=== PATIENT | male | born 1940 | race Two or more races ===

== ENCOUNTER 2020-11-04 13:37 | Inpatient (IN) | payer MEDICARE, OTHER ==
[~2020-11-04] VITALS: Ht 185.4 cm; Wt 96.5 kg
[2020-11-04] MEDS ORDERED: MORPHINE SULFATE INJECTION 2 MG/ML SYRG IV ONE ×2 (14:45→16:15)
[2020-11-04] MEDS ORDERED: TETANUS-DIPTH-ACEL PERTUSSIS 0.5ML SYR Tdap IM ONE (14:45)
[2020-11-04] MEDS ORDERED: ONDANSETRON HCL 4 MG/2 ML VIAL IV ONE (14:45)
[2020-11-04] MEDS ORDERED: MORPHINE SULFATE INJECTION 2 MG/ML SYRG ONE (14:47)
[2020-11-04] MEDS ORDERED: ONDANSETRON HCL 4 MG/2 ML VIAL ONE (14:47)
[2020-11-04 14:55] LABS: Hemoglobin 14.2 g/dL (13.5-17.5); Mean Corpuscular Hemoglobin 31.2 pg (28.0-32.0); Mean Corpuscular Hgb Conc. 34.5 g/dL (32.0-36.0); Mean Corpuscular Volume 90.3 fL (80.0-100.0); Red Blood Cells 4.54 10^6/uL (4.5-5.90); Red Cell Distribution Width 15.2 % (11.8-14.3); White Blood Cell 11.7 10^3/uL (4.4-10.8)
[2020-11-04 15:09] LABS: Basophils % (manual) 0 (0.0-2.0); Blast Cells 0; Myelocytes % 0; Promyelocytes % 0; Reactive Lymphocytes 0
[2020-11-04 15:14] LABS: Albumin 3.5 g/dL (3.4-5.0); Anion Gap 5 (5-15); Blood Urea Nitrogen 15 mg/dL (7-18); Calcium 8.2 mg/dL (8.5-10.1); Carbon Dioxide 25 mmol/L (21-32); Chloride 110 mmol/L (98-107); Glucose 102 mg/dL (74-106); Potassium 3.7 mmol/L (3.5-5.1); Sodium 140 mmol/L (136-145)
[2020-11-04 15:20] LABS: Alanine Aminotransferase 31 U/L (16-61); Alkaline Phosphatase 92 U/L (45-117); Aspartate Aminotransferase 22 U/L (15-37); BUN/Creatinine Ratio 17.9; Bilirubin, Total 0.6 mg/dL (0.2-1.0); GFR African American 113 mL/min; GFR Non-African American 93 mL/min; Total Protein 6.8 g/dL (6.4-8.2)
[2020-11-04] MEDS ORDERED: SODIUM CHLORIDE 0.9% 1,000 ML IVB ONE (16:00)
[2020-11-04] MEDS ORDERED: NEOMYCIN-BACITRACIN-POLYM UNITDOSE PKG TOP OINT TOP ONE (16:11)
[2020-11-04 16:24] LABS: Band Neutrophils % (manual) 8
[2020-11-04 16:25] LABS: Eosinophils % (manual) 0 (0-7); Lymphocytes % (manual) 4 (10.0-50.0); Metamyelocytes % 1; Monocytes % (manual) 2 (0-12)
[2020-11-04 17:00] LABS: INR 1.05 (0.9-1.15); Partial Thromboplastin Time 23.9 sec (23.0-31.2)
[2020-11-04] MEDS ORDERED: HYDROcodone-ACET 10/325MG TAB PO PRN (17:30)
[2020-11-04] MEDS ORDERED: CHOL500033 PO (17:48)
[2020-11-04] MEDS ORDERED: BENA20TA14 PO (17:48)
[2020-11-04] MEDS ORDERED: FLUT250M2 INH (17:48)
[2020-11-04] MEDS ORDERED: ATE50T PO (17:48)
[2020-11-04] MEDS: SODIUM CHLORIDE 0.9% 1,000 ML IV SCH (17:58)
[2020-11-04] MEDS: HYDROmorphone HCL 2 MG/ML VL IV PRN (18:11)
[2020-11-04] MEDS ORDERED: MORPHINE SULFATE INJECTION 2 MG/ML SYRG IV PRN (18:15)
[2020-11-04] MEDS ORDERED: NITROGLYCERIN 0.4 MG SL TAB SL PRN (18:15)
[2020-11-04 19:55] VITALS: BP 129/69
[2020-11-04] MEDS ORDERED: HEPARIN SODIUM (PORCINE) 5000 UNITS/ML 1ML VIAL SC SCH (22:00)
[2020-11-04 23:48] VITALS: BP 127/86
[2020-11-04 23:54] VITALS: BP 129/69
[2020-11-05] VITALS (13 sets, daily range): BP systolic 109–152; BP diastolic 38–73
[2020-11-05] MEDS ORDERED: MAGN400T40 PO (01:42)
[2020-11-05] MEDS ORDERED: FLUT1AER6 IN (01:42)
[2020-11-05] MEDS ORDERED: TIOTCAP IN (01:42)
[2020-11-05] MEDS ORDERED: PNEUMOCOCCAL VACC POLYS 25 MCG/0.5 ML VIAL IM ONE (01:45)
[2020-11-05] MEDS: ALBUTEROL SULF 2.5 MG/0.5ML(0.5%) NEB SOLN NEB PRN ×2 (03:15→11:08)
[2020-11-05] MEDS: SODIUM CHLORIDE 0.9% 1,000 ML IV SCH (03:22)
[2020-11-05] MEDS: HYDROmorphone HCL 2 MG/ML VL IV PRN ×2 (03:32→09:02)
[2020-11-05 04:31] LABS: Urine Bacteria FEW /hpf (None Seen); Urine Blood 2+ /uL (Negative); Urine Hyaline Cast FEW /lpf (0 - 2); Urine Mucus FEW (None Seen); Urine Specific Gravity 1.022 (1.001-1.035); Urine WBC 36 /hpf (0 - 3)
[2020-11-05] MEDS: BENAZEPRIL HCL 10 MG TAB PO SCH (09:00)
[2020-11-05] MEDS: ATENOLOL 50 MG TAB PO SCH (09:01)
[2020-11-05] MEDS: FLUTICASONE SALMETEROL IN SCH ×2 (10:00→22:13)
[2020-11-05] MEDS ORDERED: ceFAZolin 1GM/50ML 100 ML IV ONE (12:47)
[2020-11-05] MEDS ORDERED: TETRACAINE 1% INJ 2 ML VIAL IJ ONE (13:17)
[2020-11-05] MEDS ORDERED: PHENYLEPHRINE HCL 10 MG/ML VL IV ONE (13:18)
[2020-11-05] MEDS ORDERED: DexAMETHasone SOD PHOS 10MG/1ML VIAL INJ ONE (13:19)
[2020-11-05] MEDS ORDERED: PROPOFOL 10 MG/ML 20 ML IV ONE (13:19)
[2020-11-05] MEDS ORDERED: MORPHINE SULF PF 2 MG/2 ML SYRG ONE (13:19)
[2020-11-05] MEDS ORDERED: fentaNYL CITRATE 100 MCG/2 ML VL ONE (13:19)
[2020-11-05] MEDS ORDERED: MIDAZOLAM HCL 2MG/2ML 2ml VIAL (1mg/ml) ONE (13:23)
[2020-11-05] MEDS ORDERED: HYDROcodone-ACET 10/325MG TAB PO PRN (14:45)
[2020-11-05] MEDS ORDERED: NALBUPHINE HCL 10 MG/1ml INJECTION SUBCUT ONE (15:15)
[2020-11-05] MEDS ORDERED: HYDROmorphone HCL 2 MG/ML VL IV PRN (15:15)
[2020-11-05] MEDS ORDERED: DexAMETHasone SOD PHOS 10MG/1ML VIAL INJ IV PRN (15:15)
[2020-11-05] MEDS ORDERED: ONDANSETRON HCL 4 MG/2 ML VIAL IV PRN (15:15)
[2020-11-05] MEDS ORDERED: diphenhdrAMINE HCL 50 MG/1 ML VL IV PRN (15:15)
[2020-11-05] MEDS ORDERED: ePHEDrine SULFATE 50 MG/ML AMP IV PRN (15:15)
[2020-11-05] MEDS ORDERED: NALOXONE HCL 0.4 MG/ML VIAL IV PRN (15:15)
[2020-11-05] MEDS ORDERED: LABETALOL HCL 5 MG/ML 4ML SYRINGE IV PRN (15:15)
[2020-11-05] MEDS: ceFAZolin 1GM/50ML 50 ML IV SCH ×2 (17:09→20:41)
[2020-11-05] MEDS: LACTATED RINGER'S 1,000 ML IV SCH (17:09)
[2020-11-05] MEDS: SODIUM CHLOR 0.9% PF (SALINE LOCK) 10ML VIAL/SYR IV SCH (22:12)
[2020-11-05] MEDS: CALCIUM CARB 500 MG CHEW TAB PO PRN (22:14)
[2020-11-06] VITALS (19 sets, daily range): BP systolic 119–170; BP diastolic 45–88
[2020-11-06] MEDS: LACTATED RINGER'S 1,000 ML IV SCH ×2 (01:06→12:00)
[2020-11-06] MEDS: ceFAZolin 1GM/50ML 50 ML IV SCH (02:21)
[2020-11-06] MEDS: SODIUM CHLOR 0.9% PF (SALINE LOCK) 10ML VIAL/SYR IV SCH ×2 (05:49→14:00)
[2020-11-06 06:01] LABS: Basophils # (auto) 0 10 ^3/uL (0-0.2); Basophils % (auto) 0.2 % (0.0-2.0); Eosinophils # (auto) 0 10 ^3/uL (0-0.8); Eosinophils % (auto) 0.1 % (0.0-7.0); Hematocrit 28.7 % (41.0-53.0); Hemoglobin 10.1 g/dL (13.5-17.5); Lymphocytes # (auto) 0.3 10 ^3/uL (0.4-5.4); Lymphocytes % (auto) 3.6 % (10.0-50.0); Mean Corpuscular Hemoglobin 31.7 pg (28.0-32.0); Mean Corpuscular Hgb Conc. 35.3 g/dL (32.0-36.0); Mean Corpuscular Volume 89.8 fL (80.0-100.0); Monocytes # (auto) 0.4 10 ^3/uL (0-1.3); Monocytes % (auto) 5.7 % (0.0-12.0); Neutrophils % (auto) 90.4 % (37.0-80.0); Red Blood Cells 3.19 10^6/uL (4.5-5.90); White Blood Cell 7.8 10^3/uL (4.4-10.8)
[2020-11-06 06:24] LABS: Potassium 4.1 mmol/L (3.5-5.1)
[2020-11-06 06:29] LABS: BUN/Creatinine Ratio 27.9; Calcium 7.5 mg/dL (8.5-10.1)
[2020-11-06] MEDS: BENAZEPRIL HCL 10 MG TAB PO SCH (09:09)
[2020-11-06] MEDS: ATENOLOL 50 MG TAB PO SCH (09:09)
[2020-11-06] MEDS: HYDROmorphone HCL 2 MG/ML VL IV PRN ×2 (09:10→16:26)
[2020-11-06] MEDS: FLUTICASONE SALMETEROL IN SCH (09:55)
[2020-11-06] MEDS ORDERED: ENOXAPARIN SOD 40 MG/0.4 ML SYRINGE SC SCH (10:00)
[2020-11-06] MEDS ORDERED: PANTOPRAZOLE 40 MG TAB PO SCH (10:00)
[2020-11-06] MEDS: CALCIUM CARB 500 MG CHEW TAB PO PRN (12:29)
[2021-03-03] MEDS ORDERED: TAMS0.4C36 PO (14:51)
[2021-03-03] MEDS ORDERED: ATE50T PO (14:51)
[2021-03-03] MEDS ORDERED: OME20GT GT (14:51)
[2021-03-03] MEDS ORDERED: ATOR10TA PO (14:51)
[2021-03-03] MEDS ORDERED: OMEP-434 PO (14:51)
[2021-03-03] MEDS ORDERED: ALEN70TA74 PO (14:51)
== END 2020-11-06 21:00 | DRG 481 ==
LOC: EDBD 13:37 → ER 13:37 → OVERFLOW 18:09 → CENTRAL 19:43
PROVIDERS: ADMIT Internal Medicine; ATTEND Internal Medicine
PROC: BQ14ZZZ Fluoroscopy of Left Femur (ICD-10-PCS; 2020-11-05)
PROC: 0QS706Z Reposition Left Upper Femur with Intramedullary Internal Fixation Device, Open Approach (ICD-10-PCS; principal; 2020-11-05 13:28)
DX: S72.142A Displaced intertrochanteric fracture of left femur, initial encounter for closed fracture (principal); D62 Acute posthemorrhagic anemia; S41.112A Laceration without foreign body of left upper arm, initial encounter; Z20.822 Contact with and (suspected) exposure to COVID-19; I10 Essential (primary) hypertension; J44.9 Chronic obstructive pulmonary disease, unspecified; E78.5 Hyperlipidemia, unspecified; E66.9 Obesity, unspecified; W18.39XA Other fall on same level, initial encounter; Z85.51 Personal history of malignant neoplasm of bladder; S42.202G Unspecified fracture of upper end of left humerus, subsequent encounter for fracture with delayed healing; Z23 Encounter for immunization; Z92.3 Personal history of irradiation; Z87.891 Personal history of nicotine dependence; Y93.89 Activity, other specified; Y92.59 Other trade areas as the place of occurrence of the external cause; Y99.8 Other external cause status; Z82.49 Family history of ischemic heart disease and other diseases of the circulatory system; Z82.0 Family history of epilepsy and other diseases of the nervous system; Z79.899 Other long term (current) drug therapy; Z68.26 Body mass index [BMI] 26.0-26.9, adult
CPT/HCPCS: 36415; 71045; 72170; 72192; 73030; 73060; 73080; 73502; 76000; 80048; 80053; 81001; 83735; 84484; 85007; 85025; 85027; 85610; 85730; 86850; 86900; 86901; 87081; 87426; 90471; 90715; 93005; 93306; 94640; 96361; 96374; 96375; 99291; A4565; C1713; G0378; J0690; J1100; J2250; J2405; J2704

== ENCOUNTER 2021-03-08 09:02 | Day surgery (SDC) | payer OTHER ==
[~2021-03-08] VITALS: Ht 172.7 cm; Wt 90.7 kg
[~2021-03-08 09:02] MED LIST: ALEN70TA74 PO; ATE50T PO; ATOR10TA PO; BENA20TA14 PO; CHOL500033 PO; FLUT1AER6 IN; FLUT250M2 INH; MAGN400T40 PO; OMEP-434 PO; TAMS0.4C36 PO; TIOTCAP IN
[2021-03-08] MEDS ORDERED: ceFAZolin 1GM/50ML 100 ML IV ONE (09:18)
[2021-03-08] MEDS ORDERED: MIDAZOLAM HCL 2MG/2ML 2ml VIAL (1mg/ml) ONE (10:50)
[2021-03-08] MEDS ORDERED: fentaNYL CITRATE 100 MCG/2 ML VL ONE (10:50)
[2021-03-08] MEDS ORDERED: LIDOCAINE 2% (LOCAL ANESTH.) PF 5ml SDV ONE (10:56)
[2021-03-08] MEDS ORDERED: PROPOFOL 10 MG/ML 20 ML IV ONE ×2 (10:56→12:19)
[2021-03-08] MEDS ORDERED: ePHEDrine SULFATE 50 MG/ML AMP ONE (12:19)
[2021-03-08] MEDS ORDERED: HYDROmorphone HCL 2 MG/ML VL IV PRN (12:30)
[2021-03-08] MEDS ORDERED: ONDANSETRON HCL 4 MG/2 ML VIAL IV PRN (12:30)
[2021-03-08 15:30] VITALS: BP 148/58
== END 2021-03-08 20:15 | disposition home or self-care (01) ==
LOC: SUR 09:02
PROVIDERS: ATTEND Orthopaedic Surgery
DX: M25.552 Pain in left hip (principal); T84.091A Other mechanical complication of internal left hip prosthesis, initial encounter; S72.141D Displaced intertrochanteric fracture of right femur, subsequent encounter for closed fracture with routine healing; I10 Essential (primary) hypertension; J44.9 Chronic obstructive pulmonary disease, unspecified; E78.5 Hyperlipidemia, unspecified; Z20.822 Contact with and (suspected) exposure to COVID-19; Y82.8 Other medical devices associated with adverse incidents; Y83.1 Surgical operation with implant of artificial internal device as the cause of abnormal reaction of the patient, or of later complication, without mention of misadventure at the time of the procedure
CPT/HCPCS: 20680; 86850; 86900; 86901; C1713; J0690; J2001; J2250; J2704; J3010; U0003

== ENCOUNTER 2022-06-29 02:25 | Inpatient (IN) | payer OTHER ==
[~2022-06-29] VITALS: Ht 182.9 cm; Wt 91.8 kg
[2022-06-29] MEDS ORDERED: ACETAMINOPHEN 325 MG TAB PO ONE (03:00)
[2022-06-29 03:56] LABS: Basophils # (auto) 0 10 ^3/uL (0-0.2); Basophils % (auto) 0.2 % (0.0-2.0); Eosinophils # (auto) 0 10 ^3/uL (0-0.8); Hematocrit 38.9 % (41.0-53.0); Hemoglobin 13.3 g/dL (13.5-17.5); Lymphocytes # (auto) 0.3 10 ^3/uL (0.4-5.4); Lymphocytes % (auto) 2.5 % (10.0-50.0); Mean Corpuscular Hemoglobin 29.6 pg (28.0-32.0); Mean Corpuscular Hgb Conc. 34.1 g/dL (32.0-36.0); Mean Corpuscular Volume 86.7 fL (80.0-100.0); Monocytes # (auto) 0.3 10 ^3/uL (0-1.3); Monocytes % (auto) 3.2 % (0.0-12.0); Neutrophils # (auto) 9.7 10 ^3/uL (1.6-8.6); Neutrophils % (auto) 94.1 % (37.0-80.0); Red Blood Cells 4.49 10^6/uL (4.5-5.90); Red Cell Distribution Width 16.3 % (11.8-14.3); White Blood Cell 10.3 10^3/uL (4.4-10.8)
[2022-06-29 04:11] LABS: INR 1.24 (0.9-1.15); Partial Thromboplastin Time 29.9 sec (24.6-33.4)
[2022-06-29 04:12] LABS: Albumin 2.9 g/dL (3.4-5.0); BUN/Creatinine Ratio 18.3; Calcium 7.7 mg/dL (8.5-10.1); Potassium 3.9 mmol/L (3.5-5.1)
[2022-06-29 04:14] LABS: Lactic Acid w/Reflex 2.7 mmol/L (0.4-2.0)
[2022-06-29 04:15] LABS: Bilirubin, Total 0.7 mg/dL (0.2-1.0)
[2022-06-29] MEDS ORDERED: ALBUTEROL MEDNEB 2.5 mg/3ml NEB ONE (04:37)
[2022-06-29] MEDS ORDERED: AZITHROMYCIN 500MG/ 250ML 250 ML IV ONE (04:45)
[2022-06-29] MEDS ORDERED: ALBUTEROL SULF 2.5 MG/0.5ML(0.5%) NEB SOLN NEB ONE (04:45)
[2022-06-29] MEDS ORDERED: cefTRIAXone 1GM/50ML D5W 50 ML IV ONE (04:45)
[2022-06-29] MEDS ORDERED: DexAMETHasone SOD PHOS 10MG/1ML VIAL INJ IV ONE (04:45)
[2022-06-29] MEDS ORDERED: HEPARIN DRIP/D5W 100UNITS/ML 250 ML IV SCH ×3 (04:45→22:30)
[2022-06-29] MEDS ORDERED: HEPARIN SODIUM (PORCINE) 5000 UNITS/ML 1ML VIAL IV ONE (04:45)
[2022-06-29 05:47] LABS: Basophils # (auto) 0 10 ^3/uL (0-0.2); Basophils % (auto) 0.3 % (0.0-2.0); Eosinophils # (auto) 0 10 ^3/uL (0-0.8); Hematocrit 36.4 % (41.0-53.0); Hemoglobin 12.5 g/dL (13.5-17.5); Lymphocytes # (auto) 0.4 10 ^3/uL (0.4-5.4); Lymphocytes % (auto) 2.6 % (10.0-50.0); Mean Corpuscular Hemoglobin 29.6 pg (28.0-32.0); Mean Corpuscular Hgb Conc. 34.3 g/dL (32.0-36.0); Mean Corpuscular Volume 86.4 fL (80.0-100.0); Monocytes # (auto) 0.6 10 ^3/uL (0-1.3); Monocytes % (auto) 4.5 % (0.0-12.0); Neutrophils # (auto) 13.3 10 ^3/uL (1.6-8.6); Neutrophils % (auto) 92.6 % (37.0-80.0); Red Blood Cells 4.21 10^6/uL (4.5-5.90); Red Cell Distribution Width 16.6 % (11.8-14.3); White Blood Cell 14.4 10^3/uL (4.4-10.8)
[2022-06-29] MEDS: NOREPINEPHRINE 8 MG/250ML KIT 250 ML IV SCH (06:33)
[2022-06-29] MEDS ORDERED: AZITHROMYCIN 500MG/ 250ML 250 ML IV SCH (12:15)
[2022-06-29] MEDS ORDERED: MORPHINE SULFATE INJ 2 MG/ml SYRG IV PRN (12:15)
[2022-06-29] MEDS ORDERED: cefTRIAXone 1GM/50ML D5W 50 ML IV SCH (12:15)
[2022-06-29] MEDS ORDERED: NITROGLYCERIN 0.4 MG SL TAB SL PRN (12:15)
[2022-06-29] MEDS ORDERED: PIPERACILLIN-TAZOB 2.25GM 50 ML IV ONE (14:00)
[2022-06-29] MEDS: PIPERACILLIN-TAZOB 2.25GM 50 ML IV SCH ×2 (14:51→21:20)
[2022-06-29 14:54] LABS: INR 1.22 (0.9-1.15); Partial Thromboplastin Time 41.9 sec (24.6-33.4)
[2022-06-29 15:58] LABS: Urine Bacteria MANY /hpf (None Seen); Urine Blood Negative /uL (Negative); Urine Hyaline Cast FEW /lpf (0 - 2); Urine Mucus FEW (None Seen); Urine WBC 80 /hpf (0 - 3); Urine WBC Clumps PRESENT /hpf (None Seen)
[2022-06-29] MEDS: IPRATROPIUM BROM 0.5 MG/2.5ML INH SOL NEB SCH ×2 (16:05→22:28)
[2022-06-29] MEDS: ALBUTEROL SULF 2.5 MG/0.5ML(0.5%) NEB SOLN NEB SCH ×2 (16:05→22:28)
[2022-06-29 20:23] LABS: INR 1.24 (0.9-1.15); Partial Thromboplastin Time 45.9 sec (24.6-33.4)
[2022-06-29] MEDS ORDERED: IPRATROPIUM BROM 0.5 MG/2.5ML INH SOL ONE (21:58)
[2022-06-30 01:36] VITALS: BP 114/55
[2022-06-30] MEDS: PIPERACILLIN-TAZOB 2.25GM 50 ML IV SCH ×3 (03:20→14:00)
[2022-06-30 05:35] LABS: INR 1.11 (0.9-1.15); Partial Thromboplastin Time 35.6 sec (24.6-33.4)
[2022-06-30] MEDS: ALBUTEROL SULF 2.5 MG/0.5ML(0.5%) NEB SOLN NEB SCH (06:00)
[2022-06-30] MEDS: NOREPINEPHRINE 8 MG/250ML KIT 250 ML IV SCH (06:30)
[2022-06-30] MEDS ORDERED: HEPARIN DRIP/D5W 100UNITS/ML 250 ML IV SCH (06:30)
[2022-06-30] MEDS ORDERED: ALBUTEROL MEDNEB 2.5 mg/3ml NEB ONE (07:15)
[2022-06-30] MEDS: IPRATROPIUM BROM 0.5 MG/2.5ML INH SOL NEB SCH ×3 (07:28→22:10)
[2022-06-30 12:00] LABS: Basophils # (auto) 0 10 ^3/uL (0-0.2); Basophils % (auto) 0.2 % (0.0-2.0); Eosinophils # (auto) 0 10 ^3/uL (0-0.8); Hematocrit 39.6 % (41.0-53.0); Hemoglobin 13.7 g/dL (13.5-17.5); Lymphocytes # (auto) 0.2 10 ^3/uL (0.4-5.4); Lymphocytes % (auto) 1.7 % (10.0-50.0); Mean Corpuscular Hemoglobin 29.2 pg (28.0-32.0); Mean Corpuscular Hgb Conc. 34.5 g/dL (32.0-36.0); Mean Corpuscular Volume 84.4 fL (80.0-100.0); Monocytes # (auto) 0.5 10 ^3/uL (0-1.3); Monocytes % (auto) 3.7 % (0.0-12.0); Neutrophils # (auto) 13.1 10 ^3/uL (1.6-8.6); Neutrophils % (auto) 94.4 % (37.0-80.0); Nucleated Red Blood Cells % 0.1 %; Red Blood Cells 4.69 10^6/uL (4.5-5.90); Red Cell Distribution Width 16.2 % (11.8-14.3); White Blood Cell 13.9 10^3/uL (4.4-10.8)
[2022-06-30 12:32] LABS: INR 1.07 (0.9-1.15); Partial Thromboplastin Time 27.5 sec (24.6-33.4)
[2022-06-30 14:19] LABS: Albumin 2.8 g/dL (3.4-5.0); Calcium 8.4 mg/dL (8.5-10.1); Potassium 4.9 mmol/L (3.5-5.1)
[2022-06-30 14:22] LABS: BUN/Creatinine Ratio 33.3; Bilirubin, Total 0.4 mg/dL (0.2-1.0); Total Protein 7.1 g/dL (6.4-8.2)
[2022-06-30] MEDS ORDERED: FUROSEMIDE 40 MG/4 ML VIAL IV ONE (15:15)
[2022-06-30 17:00] VITALS: BP 158/31
[2022-06-30] MEDS: PIPERACILLIN-TAZOB 3.375GM 100 ML IV SCH ×2 (17:29→23:50)
[2022-06-30] MEDS: LORazepam 0.5 MG TAB PO PRN (17:53)
[2022-06-30] MEDS: ALBUTEROL MEDNEB 2.5 mg/3ml NEB NEB SCH ×2 (18:22→22:10)
[2022-06-30] MEDS: AMIODARONE 450mg/250ml AE 250 ML IV SCH (20:22)
[2022-07-01] MEDS: PIPERACILLIN-TAZOB 3.375GM 100 ML IV SCH ×4 (05:45→23:45)
[2022-07-01] MEDS: IPRATROPIUM BROM 0.5 MG/2.5ML INH SOL NEB SCH ×5 (06:23→22:10)
[2022-07-01] MEDS: ALBUTEROL MEDNEB 2.5 mg/3ml NEB NEB SCH ×5 (06:23→22:10)
[2022-07-01 06:24] LABS: Basophils # (auto) 0.1 10 ^3/uL (0-0.2); Basophils % (auto) 0.3 % (0.0-2.0); Eosinophils # (auto) 0 10 ^3/uL (0-0.8); Eosinophils % (auto) 0.2 % (0.0-7.0); Hemoglobin 13.2 g/dL (13.5-17.5); Lymphocytes # (auto) 0.3 10 ^3/uL (0.4-5.4); Lymphocytes % (auto) 1.5 % (10.0-50.0); Mean Corpuscular Hemoglobin 29.2 pg (28.0-32.0); Mean Corpuscular Hgb Conc. 33.8 g/dL (32.0-36.0); Mean Corpuscular Volume 86.4 fL (80.0-100.0); Monocytes % (auto) 5.1 % (0.0-12.0); Neutrophils # (auto) 18.4 10 ^3/uL (1.6-8.6); Neutrophils % (auto) 92.9 % (37.0-80.0); Red Blood Cells 4.52 10^6/uL (4.5-5.90); Red Cell Distribution Width 16.7 % (11.8-14.3); White Blood Cell 19.9 10^3/uL (4.4-10.8)
[2022-07-01 06:49] LABS: Potassium 5.1 mmol/L (3.5-5.1)
[2022-07-01 07:11] LABS: Albumin 2.6 g/dL (3.4-5.0); BUN/Creatinine Ratio 32.3; Bilirubin, Total 0.6 mg/dL (0.2-1.0); Total Protein 6.4 g/dL (6.4-8.2)
[2022-07-01 08:00] VITALS: BP 122/77
[2022-07-01] MEDS ORDERED: IOHEXOL 350 MG/ML 100ML IJ ONE (08:12)
[2022-07-01 09:00] VITALS: BP 122/77
[2022-07-01] MEDS: FUROSEMIDE 40 MG/4 ML VIAL IV SCH (10:26)
[2022-07-01] MEDS: AMIODARONE 450mg/250ml AE 250 ML IV SCH (11:10)
[2022-07-01 13:00] VITALS: BP 116/62
[2022-07-01] MEDS ORDERED: BENA10TA15 PO (14:47)
[2022-07-01] MEDS ORDERED: OME20GT GT (14:50)
[2022-07-01] MEDS ORDERED: FLUT1AER6 IN (14:51)
[2022-07-01 16:54] VITALS: BP 119/68
[2022-07-01 20:00] VITALS: BP 122/62
[2022-07-01] MEDS: SENNA 8.6 MG TAB PO SCH (22:18)
[2022-07-01] MEDS: LORazepam 0.5 MG TAB PO PRN (23:45)
[2022-07-02] MEDS: AMIODARONE 450mg/250ml AE 250 ML IV SCH ×2 (02:05→18:30)
[2022-07-02] MEDS: PIPERACILLIN-TAZOB 3.375GM 100 ML IV SCH (06:11)
[2022-07-02 06:15] LABS: Basophils # (auto) 0.1 10 ^3/uL (0-0.2); Basophils % (auto) 0.3 % (0.0-2.0); Eosinophils # (auto) 0.1 10 ^3/uL (0-0.8); Eosinophils % (auto) 0.3 % (0.0-7.0); Hematocrit 40.4 % (41.0-53.0); Hemoglobin 14.1 g/dL (13.5-17.5); Lymphocytes # (auto) 0.4 10 ^3/uL (0.4-5.4); Mean Corpuscular Hemoglobin 29.6 pg (28.0-32.0); Mean Corpuscular Hgb Conc. 34.8 g/dL (32.0-36.0); Monocytes # (auto) 0.8 10 ^3/uL (0-1.3); Monocytes % (auto) 4.3 % (0.0-12.0); Neutrophils # (auto) 17.6 10 ^3/uL (1.6-8.6); Neutrophils % (auto) 93.1 % (37.0-80.0); Nucleated Red Blood Cells % 0.4 %; Red Blood Cells 4.76 10^6/uL (4.5-5.90); White Blood Cell 18.9 10^3/uL (4.4-10.8)
[2022-07-02 06:36] LABS: Potassium 4.3 mmol/L (3.5-5.1)
[2022-07-02 06:45] LABS: Albumin 2.6 g/dL (3.4-5.0); BUN/Creatinine Ratio 29.2; Calcium 8.8 mg/dL (8.5-10.1)
[2022-07-02 06:47] LABS: Bilirubin, Total 0.7 mg/dL (0.2-1.0); Total Protein 5.9 g/dL (6.4-8.2)
[2022-07-02] MEDS: IPRATROPIUM BROM 0.5 MG/2.5ML INH SOL NEB SCH ×3 (06:52→14:04)
[2022-07-02] MEDS: ALBUTEROL MEDNEB 2.5 mg/3ml NEB NEB SCH ×3 (06:52→14:04)
[2022-07-02 08:00] VITALS: BP 122/77
[2022-07-02 09:00] VITALS: BP 143/83
[2022-07-02] MEDS: FUROSEMIDE 40 MG/4 ML VIAL IV SCH (09:54)
[2022-07-02 13:00] VITALS: BP 140/72
[2022-07-02] MEDS ORDERED: PIPERACILLIN-TAZOB 3.375GM 100 ML IV SCH (14:00)
[2022-07-02 17:00] VITALS: BP 130/97
[2022-07-02] MEDS ORDERED: cefTRIAXone 1GM/50ML D5W 50 ML IV STA (17:48)
[2022-07-02] MEDS ORDERED: ALBUTEROL MEDNEB 2.5 mg/3ml NEB NEB PRN (18:00)
[2022-07-02] MEDS ORDERED: IPRATROPIUM BROM 0.5 MG/2.5ML INH SOL NEB PRN (18:00)
[2022-07-02] MEDS ORDERED: AZITHROMYCIN 500MG/ 250ML 250 ML IV STA (18:10)
[2022-07-02] MEDS: ADVAIR IN SCH (18:45)
[2022-07-02] MEDS: SPIRIVA HANDIHALER IN SCH (18:46)
[2022-07-02 20:00] VITALS: BP 124/76
[2022-07-02] MEDS: SENNA 8.6 MG TAB PO SCH (21:12)
[2022-07-02 22:00] VITALS: BP 124/76
[2022-07-03 02:34] VITALS: BP 124/76
[2022-07-03 05:00] VITALS: BP 126/86
[2022-07-03 06:47] LABS: Basophils # (auto) 0 10 ^3/uL (0-0.2); Basophils % (auto) 0.1 % (0.0-2.0); Eosinophils # (auto) 0.1 10 ^3/uL (0-0.8); Eosinophils % (auto) 0.4 % (0.0-7.0); Hematocrit 42.7 % (41.0-53.0); Hemoglobin 14.6 g/dL (13.5-17.5); Lymphocytes # (auto) 0.5 10 ^3/uL (0.4-5.4); Lymphocytes % (auto) 3.1 % (10.0-50.0); Mean Corpuscular Hemoglobin 29.4 pg (28.0-32.0); Mean Corpuscular Hgb Conc. 34.3 g/dL (32.0-36.0); Mean Corpuscular Volume 85.8 fL (80.0-100.0); Monocytes # (auto) 0.9 10 ^3/uL (0-1.3); Monocytes % (auto) 5.3 % (0.0-12.0); Neutrophils # (auto) 15.3 10 ^3/uL (1.6-8.6); Neutrophils % (auto) 91.1 % (37.0-80.0); Nucleated Red Blood Cells % 0.2 %; Red Blood Cells 4.97 10^6/uL (4.5-5.90); Red Cell Distribution Width 16.3 % (11.8-14.3); White Blood Cell 16.7 10^3/uL (4.4-10.8)
[2022-07-03 08:53] LABS: Albumin 2.5 g/dL (3.4-5.0); Calcium 8.8 mg/dL (8.5-10.1); Potassium 4.9 mmol/L (3.5-5.1)
[2022-07-03 08:57] LABS: BUN/Creatinine Ratio 21.6; Bilirubin, Total 0.6 mg/dL (0.2-1.0); Total Protein 6.5 g/dL (6.4-8.2)
[2022-07-03] MEDS ORDERED: cefTRIAXone 1GM/50ML D5W 50 ML IV SCH (09:00)
[2022-07-03 09:09] VITALS: BP 128/67
[2022-07-03] MEDS ORDERED: AZITHROMYCIN 500MG/ 250ML 250 ML IV SCH (10:00)
[2022-07-03 10:43] LABS: Basophils # (auto) 0 10 ^3/uL (0-0.2); Basophils % (auto) 0.1 % (0.0-2.0); Eosinophils # (auto) 0 10 ^3/uL (0-0.8); Eosinophils % (auto) 0.3 % (0.0-7.0); Hematocrit 40.8 % (41.0-53.0); Hemoglobin 14.1 g/dL (13.5-17.5); Lymphocytes # (auto) 0.5 10 ^3/uL (0.4-5.4); Lymphocytes % (auto) 3.2 % (10.0-50.0); Mean Corpuscular Hemoglobin 29.2 pg (28.0-32.0); Mean Corpuscular Hgb Conc. 34.5 g/dL (32.0-36.0); Mean Corpuscular Volume 84.7 fL (80.0-100.0); Monocytes # (auto) 0.8 10 ^3/uL (0-1.3); Monocytes % (auto) 5.4 % (0.0-12.0); Neutrophils # (auto) 14.3 10 ^3/uL (1.6-8.6); Nucleated Red Blood Cells % 0.1 %; Red Blood Cells 4.81 10^6/uL (4.5-5.90); Red Cell Distribution Width 16.4 % (11.8-14.3); White Blood Cell 15.7 10^3/uL (4.4-10.8)
[2022-07-03] MEDS: AMIODARONE 450mg/250ml AE 250 ML IV SCH (11:01)
[2022-07-03] MEDS: SPIRIVA HANDIHALER IN SCH (11:02)
[2022-07-03] MEDS: ADVAIR IN SCH (11:02)
[2022-07-03] MEDS: FUROSEMIDE 40 MG/4 ML VIAL IV SCH (11:02)
[2022-07-03] MEDS ORDERED: APIX2.5T PO (11:56)
[2022-07-03] MEDS ORDERED: CEFD300C2 PO ×2 (11:56→15:54)
[2022-07-03] MEDS ORDERED: ATENOLOL 50 MG TAB PO ONE (12:00)
[2022-07-03] MEDS ORDERED: APIXABAN 2.5 MG TAB PO SCH (12:00)
[2022-07-03] MEDS ORDERED: AMIODARONE HCL 200 MG TAB PO ONE (12:00)
[2022-07-03 12:30] VITALS: BP 143/84
[2022-07-03 14:28] VITALS: BP 153/85
[2022-07-04] MEDS ORDERED: AMIODARONE HCL 200 MG TAB PO SCH (10:00)
== END 2022-07-03 16:56 | disposition home or self-care (01) | DRG 280 ==
LOC: EDBD 02:25 → ER 02:25 → TELE 12:06 → CENTRAL 06-30 14:07 → TELE-CENTR 06-30 14:49
PROVIDERS: ADMIT Internal Medicine; ATTEND Internal Medicine
DX: I21.4 Non-ST elevation (NSTEMI) myocardial infarction (principal); G93.41 Metabolic encephalopathy; J18.9 Pneumonia, unspecified organism; J96.01 Acute respiratory failure with hypoxia; J44.1 Chronic obstructive pulmonary disease with (acute) exacerbation; J98.11 Atelectasis; N17.9 Acute kidney failure, unspecified; J44.0 Chronic obstructive pulmonary disease with (acute) lower respiratory infection; D61.818 Other pancytopenia; I95.9 Hypotension, unspecified; Z20.822 Contact with and (suspected) exposure to COVID-19; F02.80 Dementia in other diseases classified elsewhere, unspecified severity, without behavioral disturbance, psychotic disturbance, mood disturbance, and anxiety; G30.9 Alzheimer's disease, unspecified; E78.5 Hyperlipidemia, unspecified; H91.90 Unspecified hearing loss, unspecified ear; I12.9 Hypertensive chronic kidney disease with stage 1 through stage 4 chronic kidney disease, or unspecified chronic kidney disease; N18.9 Chronic kidney disease, unspecified; N40.0 Benign prostatic hyperplasia without lower urinary tract symptoms; Z82.0 Family history of epilepsy and other diseases of the nervous system; Z82.49 Family history of ischemic heart disease and other diseases of the circulatory system; Z87.891 Personal history of nicotine dependence
CPT/HCPCS: 36415; 36600; 70450; 71045; 71250; 71275; 72125; 74176; 80053; 81001; 82805; 83605; 83880; 84484; 85025; 85610; 85730; 87040; 87070; 87077; 87081; 87086; 87186; 87205; 87426; 87804; 93005; 93306; 94640; 96365; 96367; 96368; 96375; 99291; G0378; J0696; J1100; J2543

== ENCOUNTER 2022-08-12 11:37 | Inpatient (IN) | payer OTHER ==
[~2022-08-12] VITALS: Ht 170.2 cm; Wt 96.3 kg
[~2022-08-12 11:37] MED LIST changes: +APIX2.5T PO; +BENA10TA15 PO; +CEFD300C2 PO; +OME20GT GT
[2022-08-12 12:51] LABS: Basophils # (auto) 0.1 10 ^3/uL (0-0.2); Basophils % (auto) 0.6 % (0.0-2.0); Eosinophils # (auto) 0.2 10 ^3/uL (0-0.8); Hematocrit 37.3 % (41.0-53.0); Hemoglobin 12.3 g/dL (13.5-17.5); Lymphocytes # (auto) 0.5 10 ^3/uL (0.4-5.4); Lymphocytes % (auto) 5.9 % (10.0-50.0); Mean Corpuscular Hemoglobin 27.9 pg (28.0-32.0); Mean Corpuscular Hgb Conc. 32.9 g/dL (32.0-36.0); Mean Corpuscular Volume 84.8 fL (80.0-100.0); Monocytes # (auto) 0.7 10 ^3/uL (0-1.3); Monocytes % (auto) 8.3 % (0.0-12.0); Neutrophils # (auto) 6.8 10 ^3/uL (1.6-8.6); Neutrophils % (auto) 83.2 % (37.0-80.0); Red Cell Distribution Width 17.5 % (11.8-14.3); White Blood Cell 8.2 10^3/uL (4.4-10.8)
[2022-08-12 13:06] LABS: Albumin 2.7 g/dL (3.4-5.0); BUN/Creatinine Ratio 26.3; Calcium 8.4 mg/dL (8.5-10.1)
[2022-08-12 13:15] LABS: Bilirubin, Total 0.4 mg/dL (0.2-1.0); CRP High Sensitivity 2.03 mg/dL (< 0.3); Total Protein 5.9 g/dL (6.4-8.2)
[2022-08-12 15:25] LABS: Urine Bacteria NONE SEEN /hpf (None Seen); Urine Blood TRACE /uL (Negative); Urine Hyaline Cast FEW /lpf (0 - 2); Urine Specific Gravity 1.011 (1.001-1.035); Urine WBC 5 /hpf (0 - 3)
[2022-08-12] MEDS ORDERED: fentaNYL CITRATE 100 MCG/2 ML VL IM ONE (16:00)
[2022-08-12] MEDS: MORPHINE SULFATE INJ 2 MG/ml SYRG IV PRN (17:36)
[2022-08-12] MEDS ORDERED: NITROGLYCERIN 0.4 MG SL TAB SL PRN (20:00)
[2022-08-12] MEDS ORDERED: MORPHINE SULFATE INJ 2 MG/ml SYRG IV PRN (20:00)
[2022-08-12] MEDS ORDERED: HEPARIN SODIUM (PORCINE) 5000 UNITS/ML 1ML VIAL SC ONE (22:00)
[2022-08-13] MEDS: MORPHINE SULFATE INJ 2 MG/ml SYRG IV PRN ×2 (00:05→15:11)
[2022-08-13] MEDS: HYDROcodone-ACET 10/325MG TAB PO PRN ×3 (06:30→22:01)
[2022-08-13] MEDS ORDERED: cefTRIAXone 1GM/50ML D5W 50 ML IV ONE (10:00)
[2022-08-13 13:25] VITALS: BP 170/77
[2022-08-13] MEDS ORDERED: hydrALAZINE HCL 20 MG/ML VL IV PRN (14:15)
[2022-08-13] MEDS ORDERED: ALBUAER3 IN (14:59)
[2022-08-13] MEDS ORDERED: IPRA0.00 NEB (14:59)
[2022-08-13 15:24] VITALS: BP 142/62
[2022-08-13 16:57] LABS: Basophils # (auto) 0.1 10 ^3/uL (0-0.2); Basophils % (auto) 0.9 % (0.0-2.0); Eosinophils # (auto) 0.2 10 ^3/uL (0-0.8); Eosinophils % (auto) 2.3 % (0.0-7.0); Hematocrit 36.9 % (41.0-53.0); Hemoglobin 12.2 g/dL (13.5-17.5); Lymphocytes # (auto) 0.6 10 ^3/uL (0.4-5.4); Lymphocytes % (auto) 7.9 % (10.0-50.0); Mean Corpuscular Hemoglobin 27.9 pg (28.0-32.0); Mean Corpuscular Hgb Conc. 33.1 g/dL (32.0-36.0); Mean Corpuscular Volume 84.3 fL (80.0-100.0); Monocytes # (auto) 0.6 10 ^3/uL (0-1.3); Monocytes % (auto) 7.4 % (0.0-12.0); Neutrophils # (auto) 6.3 10 ^3/uL (1.6-8.6); Neutrophils % (auto) 81.5 % (37.0-80.0); Nucleated Red Blood Cells % 0.1 %; Red Blood Cells 4.38 10^6/uL (4.5-5.90); Red Cell Distribution Width 17.7 % (11.8-14.3); White Blood Cell 7.7 10^3/uL (4.4-10.8)
[2022-08-13 17:11] VITALS: BP 151/53
[2022-08-13 17:12] VITALS: BP 142/62
[2022-08-13] MEDS ORDERED: ALBUTEROL MEDNEB 2.5 mg/3ml NEB ONE (17:49)
[2022-08-13] MEDS ORDERED: ALBUTEROL SULF 2.5 MG/0.5ML(0.5%) NEB SOLN NEB SCH (18:00)
[2022-08-13] MEDS: TAMSULOSIN HYDROCHLORIDE 0.4 MG CAP PO SCH (18:46)
[2022-08-13] MEDS: PANTOPRAZOLE 40 MG TAB PO SCH (18:47)
[2022-08-13] MEDS: ALBUTEROL MEDNEB 2.5 mg/3ml NEB NEB SCH (19:12)
[2022-08-13 20:00] VITALS: BP 145/86
[2022-08-13 22:00] VITALS: BP 145/86
[2022-08-13] MEDS ORDERED: ATORVASTATIN 20 MG TAB PO SCH (22:00)
[2022-08-13] MEDS ORDERED: BENAZEPRIL HCL 10 MG TAB PO SCH (22:00)
[2022-08-14] MEDS: HYDROcodone-ACET 10/325MG TAB PO PRN ×2 (04:29→16:03)
[2022-08-14 05:00] VITALS: BP 154/83
[2022-08-14 06:13] LABS: Basophils # (auto) 0 10 ^3/uL (0-0.2); Basophils % (auto) 0.5 % (0.0-2.0); Eosinophils # (auto) 0.2 10 ^3/uL (0-0.8); Eosinophils % (auto) 2.2 % (0.0-7.0); Hematocrit 37.3 % (41.0-53.0); Hemoglobin 12.3 g/dL (13.5-17.5); Lymphocytes # (auto) 0.6 10 ^3/uL (0.4-5.4); Lymphocytes % (auto) 8.7 % (10.0-50.0); Mean Corpuscular Hemoglobin 27.9 pg (28.0-32.0); Mean Corpuscular Hgb Conc. 33.1 g/dL (32.0-36.0); Mean Corpuscular Volume 84.2 fL (80.0-100.0); Monocytes # (auto) 0.6 10 ^3/uL (0-1.3); Monocytes % (auto) 8.1 % (0.0-12.0); Neutrophils # (auto) 5.8 10 ^3/uL (1.6-8.6); Neutrophils % (auto) 80.5 % (37.0-80.0); Nucleated Red Blood Cells % 0.1 %; Red Blood Cells 4.43 10^6/uL (4.5-5.90); Red Cell Distribution Width 17.7 % (11.8-14.3); White Blood Cell 7.1 10^3/uL (4.4-10.8)
[2022-08-14] MEDS: ALBUTEROL MEDNEB 2.5 mg/3ml NEB NEB SCH ×4 (06:19→19:06)
[2022-08-14 06:30] LABS: Albumin 2.8 g/dL (3.4-5.0); Calcium 8.4 mg/dL (8.5-10.1); Potassium 3.9 mmol/L (3.5-5.1)
[2022-08-14 06:34] LABS: BUN/Creatinine Ratio 19.3; Bilirubin, Total 0.7 mg/dL (0.2-1.0); Total Protein 6.4 g/dL (6.4-8.2)
[2022-08-14 08:00] VITALS: BP 145/86
[2022-08-14 08:37] VITALS: BP 153/73
[2022-08-14] MEDS: PANTOPRAZOLE 40 MG TAB PO SCH (09:55)
[2022-08-14] MEDS ORDERED: ATENOLOL 50 MG TAB PO SCH (10:00)
[2022-08-14] MEDS ORDERED: CHOLECALCIFEROL (VITD3) 1,000UNIT=25mCg TAB PO SCH (10:00)
[2022-08-14] MEDS ORDERED: PANTOPRAZOLE 40 MG TAB PO SCH (10:00)
[2022-08-14 13:00] VITALS: BP 141/80
[2022-08-14] MEDS ORDERED: ENOXAPARIN SOD 40 MG/0.4 ML SYRINGE SC SCH (14:00)
[2022-08-14 17:00] VITALS: BP 150/91
[2022-08-14] MEDS: TAMSULOSIN HYDROCHLORIDE 0.4 MG CAP PO SCH (18:17)
== END 2022-08-14 20:30 | DRG 536 ==
LOC: ER 11:37 → EDBD 11:37 → TELE 19:50 → TELE-E-ADS 08-13 13:21 → TELE-EAST 08-13 16:10
PROVIDERS: ADMIT Internal Medicine; ATTEND Internal Medicine
DX: S72.142A Displaced intertrochanteric fracture of left femur, initial encounter for closed fracture (principal); N13.30 Unspecified hydronephrosis; I10 Essential (primary) hypertension; J44.9 Chronic obstructive pulmonary disease, unspecified; N32.0 Bladder-neck obstruction; R32 Unspecified urinary incontinence; G30.9 Alzheimer's disease, unspecified; Z96.642 Presence of left artificial hip joint; Z20.822 Contact with and (suspected) exposure to COVID-19; W18.39XA Other fall on same level, initial encounter; F02.80 Dementia in other diseases classified elsewhere, unspecified severity, without behavioral disturbance, psychotic disturbance, mood disturbance, and anxiety; K21.9 Gastro-esophageal reflux disease without esophagitis; Z82.0 Family history of epilepsy and other diseases of the nervous system; Z82.49 Family history of ischemic heart disease and other diseases of the circulatory system; Z85.51 Personal history of malignant neoplasm of bladder; Z87.891 Personal history of nicotine dependence; Y93.89 Activity, other specified; Y92.89 Other specified places as the place of occurrence of the external cause; Y99.8 Other external cause status
CPT/HCPCS: 36415; 70450; 71045; 73502; 74176; 76775; 80053; 81001; 82550; 83605; 83690; 83735; 83880; 84484; 85025; 86141; 87426; 93005; 93306; 94640; 96372; G0378; J0696

== ENCOUNTER 2023-09-30 17:45 | Inpatient (IN) | payer OTHER, MEDICAID ==
[~2023-09-30] VITALS: Ht 172.7 cm; Wt 80.3 kg
[~2023-09-30 17:45] MED LIST changes: +ALBUAER3 IN; -BENA10TA15 PO; +BENA10TA90 PO; -BENA20TA14 PO; -CEFD300C2 PO; -FLUT1AER6 IN; +IPRA0.00 NEB; -OME20GT GT
[2023-09-30 19:11] LABS: Basophils # (auto) 0 10 ^3/uL (0-0.2); Basophils % (auto) 0.1 % (0.0-2.0); Eosinophils # (auto) 0 10 ^3/uL (0-0.8); Eosinophils % (auto) 0.1 % (0.0-7.0); Hematocrit 35.6 % (41.0-53.0); Hemoglobin 11.5 g/dL (13.5-17.5); Lymphocytes # (auto) 0.6 10 ^3/uL (0.4-5.4); Lymphocytes % (auto) 5.2 % (10.0-50.0); Mean Corpuscular Hemoglobin 28.6 pg (28.0-32.0); Mean Corpuscular Hgb Conc. 32.2 g/dL (32.0-36.0); Mean Corpuscular Volume 88.7 fL (80.0-100.0); Monocytes # (auto) 0.3 10 ^3/uL (0-1.3); Monocytes % (auto) 2.6 % (0.0-12.0); Neutrophils # (auto) 10.4 10 ^3/uL (1.6-8.6); Red Blood Cells 4.02 10^6/uL (4.5-5.90); Red Cell Distribution Width 17.8 % (11.8-14.3); White Blood Cell 11.4 10^3/uL (4.4-10.8)
[2023-09-30 19:27] LABS: Albumin 3.5 g/dL (3.2-4.8); Alkaline Phosphatase 105 U/L (46-116); Anion Gap 10 (5-15); Aspartate Aminotransferase 8 U/L (13-40); BUN/Creatinine Ratio 9.3 (10.0-20.0); Blood Urea Nitrogen 46 mg/dL (9-23); Calcium 8.9 mg/dL (8.7-10.4); Carbon Dioxide 20 mmol/L (20-30); Chloride 105 mmol/L (98-107); Glucose 102 mg/dL (74-106); Lipase 31 U/L (12-53); Sodium 135 mmol/L (136-145)
[2023-09-30 19:28] LABS: Bilirubin, Total 0.4 mg/dL (0.2-1.0); Total Protein 6.8 g/dL (5.7-8.2)
[2023-09-30 19:33] LABS: Alanine Aminotransferase < 9 U/L (7-40)
[2023-09-30 19:34] LABS: Potassium 7.6 mmol/L (3.5-5.1)
[2023-09-30] MEDS: SODIUM BICARB 8.4% 50Meq/50ml SYR INJ IV ONE (19:45)
[2023-09-30] MEDS: ALBUTEROL SULF 2.5 MG/0.5ML(0.5%) NEB SOLN NEB ONE (19:54)
[2023-09-30 20:40] VITALS: PULSE 85; RESP 16; O2SAT 94
[2023-09-30] MEDS: DEXTROSE (50%) 50ML SYRG IV ONE (20:49)
[2023-09-30] MEDS: SODIUM ZIRCONIUM CYCL 10 GM PAK PO ONE (20:51)
[2023-09-30] MEDS: FUROSEMIDE 20 MG/2 ML VIAL IV ONE (20:52)
[2023-09-30] MEDS: CALCIUM GLUC 1,000mg/50ml-NS 50 ML IV ONE (20:52)
[2023-09-30] MEDS: InsuLIN REG 1unit/0.01ml Soln (100units/ml) IV ONE (20:52)
[2023-09-30] MEDS: PIPERACILLIN-TAZOB 3.375GM 100 ML IV ONE (20:53)
[2023-09-30] MEDS: SODIUM CHLORIDE 0.9% 1,000 ML IV ONE ×2 (20:53→23:41)
[2023-09-30] MEDS: FUROSEMIDE 40 MG/4 ML VIAL IV ONE (20:54)
[2023-09-30] MEDS ORDERED: MORPHINE SULFATE INJ 2 MG/ml SYRG IV PRN ×2 (22:00→23:30)
[2023-09-30 22:30] VITALS: BP 131/75; PULSE 76; RESP 16; TEMP 100; O2SAT 94
[2023-09-30 23:17] LABS: Urine Bacteria FEW /hpf (None Seen); Urine Blood 3+ /uL (Negative); Urine Clarity CLOUDY (Clear); Urine Color Colorless (Yellow); Urine Hyaline Cast FEW /lpf (0 - 2); Urine Mucus MODERATE (None Seen); Urine Protein, UAD 1+ (Negative); Urine Specific Gravity 1.015 (1.001-1.035); Urine Urobilinogen Normal (Negative); Urine WBC 1490 /hpf (0 - 3); Urine WBC Clumps PRESENT /hpf (None Seen); Urine pH 6.5 (5.0-8.0)
[2023-09-30] MEDS ORDERED: NITROGLYCERIN 0.4 MG SL TAB SL PRN (23:30)
[2023-10-01] VITALS (11 sets, daily range): BP systolic 112–128; BP diastolic 53–64; PULSE 52–93; RESP 12–23; TEMP 97.6–98.3; O2SAT 92–94
[2023-10-01] MEDS: SODIUM BICARB 50mEq/50ml Vial 150 ML in D5W 5% 1,000 ML IV SCH (01:44)
[2023-10-01] MEDS: SODIUM BICARB 8.4% 50Meq/50ml SYR Vial IV ONE (01:45)
[2023-10-01 05:30] LABS: Basophils # (auto) 0 10 ^3/uL (0-0.2); Basophils % (auto) 0.2 % (0.0-2.0); Eosinophils # (auto) 0 10 ^3/uL (0-0.8); Eosinophils % (auto) 0.1 % (0.0-7.0); Hematocrit 29.6 % (41.0-53.0); Hemoglobin 9.8 g/dL (13.5-17.5); Lymphocytes # (auto) 0.5 10 ^3/uL (0.4-5.4); Lymphocytes % (auto) 5.4 % (10.0-50.0); Mean Corpuscular Hemoglobin 28.9 pg (28.0-32.0); Mean Corpuscular Volume 87.6 fL (80.0-100.0); Monocytes # (auto) 0.4 10 ^3/uL (0-1.3); Monocytes % (auto) 4.9 % (0.0-12.0); Neutrophils % (auto) 89.4 % (37.0-80.0); Red Blood Cells 3.38 10^6/uL (4.5-5.90); Red Cell Distribution Width 17.5 % (11.8-14.3); White Blood Cell 8.9 10^3/uL (4.4-10.8)
[2023-10-01 05:31] LABS: Chloride 106 mmol/L (98-107); Sodium 138 mmol/L (136-145)
[2023-10-01 05:37] LABS: BUN/Creatinine Ratio 10.9 (10.0-20.0); Blood Urea Nitrogen 53 mg/dL (9-23); Glucose 139 mg/dL (74-106)
[2023-10-01 05:46] LABS: Potassium 5.9 mmol/L (3.5-5.1)
[2023-10-01 06:19] LABS: Anion Gap 9 (5-15); Carbon Dioxide 23 mmol/L (20-30)
[2023-10-01 07:50] LABS: INR 1.53 (0.9-1.15); Prothrombin Time 15.6 sec (9.3-11.8)
[2023-10-01] MEDS: PIPERACILLIN-TAZOB 3.375GM 100 ML IV SCH (10:00)
[2023-10-01] MEDS: APIXABAN 2.5 MG TAB PO SCH (10:00)
[2023-10-01] MEDS: FUROSEMIDE 40 MG/4 ML VIAL IV ONE (16:15)
[2023-10-01] MEDS: SODIUM ZIRCONIUM CYCL 10 GM PAK PO ONE (17:28)
[2023-10-01] MEDS: TAMSULOSIN HYDROCHLORIDE 0.4 MG CAP PO SCH (17:28)
[2023-10-01] MEDS: LINEZOLID 600MG/300ML 300 ML IV SCH (18:30)
[2023-10-01] MEDS: SODIUM ZIRCONIUM CYCL 10 GM PAK PO SCH (21:39)
[2023-10-02] VITALS (16 sets, daily range): BP systolic 95–109; BP diastolic 48–59; PULSE 66–94; RESP 16–20; TEMP 98–98.9; O2SAT 90–100
[2023-10-02] MEDS: ONDANSETRON HCL 4 MG/2 ML VIAL IV PRN (04:02)
[2023-10-02 06:40] LABS: Hematocrit 33.2 % (41.0-53.0); Hemoglobin 10.9 g/dL (13.5-17.5); Mean Corpuscular Hemoglobin 28.3 pg (28.0-32.0); Mean Corpuscular Hgb Conc. 32.8 g/dL (32.0-36.0); Mean Corpuscular Volume 86.3 fL (80.0-100.0); Red Blood Cells 3.84 10^6/uL (4.5-5.90); Red Cell Distribution Width 16.9 % (11.8-14.3); White Blood Cell 13.1 10^3/uL (4.4-10.8)
[2023-10-02 06:49] LABS: Anion Gap 5 (5-15); Chloride 98 mmol/L (98-107); Potassium 4.1 mmol/L (3.5-5.1); Sodium 138 mmol/L (136-145)
[2023-10-02 06:50] LABS: Calcium 7.6 mg/dL (8.5-10.1)
[2023-10-02 06:55] LABS: BUN/Creatinine Ratio 13.9 (10.0-20.0); Blood Urea Nitrogen 49 mg/dL (9-23); Glucose 202 mg/dL (74-106)
[2023-10-02 06:57] LABS: Basophils % (manual) 0 (0.0-2.0); Blast Cells 0; Promyelocytes % 0; Reactive Lymphocytes 0
[2023-10-02 07:02] LABS: Carbon Dioxide 35 mmol/L (20-30)
[2023-10-02 08:52] LABS: Platelet Estimate Adequate
[2023-10-02 08:56] LABS: Band Neutrophils % (manual) 20; Eosinophils % (manual) 1 (0-7); Lymphocytes % (manual) 7 (10.0-50.0); Metamyelocytes % 1; Monocytes % (manual) 1 (0-12); Myelocytes % 2
[2023-10-02] MEDS: DAPTOmycin 500 MG in SODIUM CHL 0.9% 50 ML IV SCH (13:41)
[2023-10-02] MEDS ORDERED: CeftoloZANE-TAZOB 0.75 GM in D5W 5% 100 ML IV SCH (14:00)
[2023-10-02] MEDS: CeftoloZANE-TAZOB 0.375 GM in D5W 5% 100 ML IV SCH (16:56)
[2023-10-02] MEDS: ALBUTEROL SULF 2.5 MG/0.5ML(0.5%) NEB SOLN NEB PRN (17:20)
[2023-10-02] MEDS: SODIUM CHLORIDE 0.9% 1,000 ML IV SCH (22:30)
[2023-10-03] VITALS (13 sets, daily range): BP systolic 93–125; BP diastolic 41–68; PULSE 81–94; RESP 12–20; TEMP 97.4–97.8; O2SAT 90–100
[2023-10-03 07:31] LABS: Anion Gap 7 (5-15); Basophils # (auto) 0 10 ^3/uL (0-0.2); Basophils % (auto) 0.4 % (0.0-2.0); Carbon Dioxide 38 mmol/L (20-30); Chloride 96 mmol/L (98-107); Eosinophils # (auto) 0 10 ^3/uL (0-0.8); Eosinophils % (auto) 0.1 % (0.0-7.0); Hematocrit 33.7 % (41.0-53.0); Hemoglobin 11.1 g/dL (13.5-17.5); Lymphocytes # (auto) 0.9 10 ^3/uL (0.4-5.4); Lymphocytes % (auto) 6.6 % (10.0-50.0); Mean Corpuscular Hemoglobin 28.7 pg (28.0-32.0); Mean Corpuscular Hgb Conc. 32.9 g/dL (32.0-36.0); Mean Corpuscular Volume 87.1 fL (80.0-100.0); Monocytes # (auto) 0.5 10 ^3/uL (0-1.3); Neutrophils # (auto) 12.2 10 ^3/uL (1.6-8.6); Neutrophils % (auto) 88.9 % (37.0-80.0); Potassium 3.3 mmol/L (3.5-5.1); Red Blood Cells 3.87 10^6/uL (4.5-5.90); Red Cell Distribution Width 17.2 % (11.8-14.3); Sodium 141 mmol/L (136-145); White Blood Cell 13.7 10^3/uL (4.4-10.8)
[2023-10-03 07:32] LABS: Calcium 7.3 mg/dL (8.5-10.1)
[2023-10-03 07:36] LABS: Glucose 107 mg/dL (74-106)
[2023-10-03 07:37] LABS: BUN/Creatinine Ratio 14.2 (10.0-20.0); Blood Urea Nitrogen 49 mg/dL (9-23)
[2023-10-03] MEDS ORDERED: MEROPENEM 500MG IVPB 50 ML IV SCH (10:00)
[2023-10-03] MEDS: PIPERACILLIN-TAZOB 3.375GM 100 ML IV SCH (12:04)
[2023-10-03] MEDS: LINEZOLID 600MG/300ML 300 ML IV SCH (12:04)
[2023-10-03] MEDS: PANTOPRAZOLE 40 MG/10 ML VIAL INJ IV SCH (12:04)
[2023-10-03] MEDS: MIDAZOLAM HCL 2MG/2ML 2ml VIAL (1mg/ml) ONE (15:47)
[2023-10-03] MEDS: fentaNYL CITRATE 100 MCG/2 ML VL ONE (15:47)
[2023-10-03] MEDS: LIDOCAINE 1% HCL (LOCAL ANESTH.) INJ 20ML MDV ONE (16:02)
[2023-10-04] VITALS (10 sets, daily range): BP systolic 101–116; BP diastolic 52–59; PULSE 55–85; RESP 14–20; TEMP 97.8–98.3; O2SAT 92–97
[2023-10-04 06:56] LABS: Basophils # (auto) 0 10 ^3/uL (0-0.2); Basophils % (auto) 0.2 % (0.0-2.0); Eosinophils # (auto) 0.1 10 ^3/uL (0-0.8); Eosinophils % (auto) 0.8 % (0.0-7.0); Hematocrit 30.4 % (41.0-53.0); Hemoglobin 9.9 g/dL (13.5-17.5); Lymphocytes # (auto) 0.8 10 ^3/uL (0.4-5.4); Lymphocytes % (auto) 8.1 % (10.0-50.0); Mean Corpuscular Hgb Conc. 32.5 g/dL (32.0-36.0); Mean Corpuscular Volume 86.1 fL (80.0-100.0); Monocytes # (auto) 0.4 10 ^3/uL (0-1.3); Monocytes % (auto) 4.7 % (0.0-12.0); Neutrophils # (auto) 8.1 10 ^3/uL (1.6-8.6); Neutrophils % (auto) 86.2 % (37.0-80.0); Red Blood Cells 3.53 10^6/uL (4.5-5.90); Red Cell Distribution Width 17.2 % (11.8-14.3); White Blood Cell 9.4 10^3/uL (4.4-10.8)
[2023-10-04 07:08] LABS: Chloride 100 mmol/L (98-107); Potassium 2.6 mmol/L (3.5-5.1); Sodium 142 mmol/L (136-145)
[2023-10-04 07:09] LABS: Anion Gap 6 (5-15); Calcium 6.4 mg/dL (8.5-10.1); Carbon Dioxide 36 mmol/L (20-30)
[2023-10-04 07:14] LABS: BUN/Creatinine Ratio 17.8 (10.0-20.0); Blood Urea Nitrogen 43 mg/dL (9-23); Glucose 77 mg/dL (74-106)
[2023-10-04] MEDS ORDERED: POTASSIUM CHL 20MEQ/100ML 100 ML IV ONE (10:15)
[2023-10-04] MEDS: POTASSIUM CHL 20MEQ/100ML 100 ML IV ONE ×2 (13:45→18:03)
[2023-10-05] VITALS (9 sets, daily range): BP systolic 120–150; BP diastolic 52–67; PULSE 55–88; RESP 16–20; TEMP 97.9; O2SAT 92–97
[2023-10-05 04:57] LABS: Basophils # (auto) 0 10 ^3/uL (0-0.2); Basophils % (auto) 0.4 % (0.0-2.0); Eosinophils # (auto) 0.2 10 ^3/uL (0-0.8); Hematocrit 29.6 % (41.0-53.0); Hemoglobin 9.4 g/dL (13.5-17.5); Lymphocytes # (auto) 0.8 10 ^3/uL (0.4-5.4); Lymphocytes % (auto) 10.4 % (10.0-50.0); Mean Corpuscular Hemoglobin 27.6 pg (28.0-32.0); Mean Corpuscular Hgb Conc. 31.7 g/dL (32.0-36.0); Monocytes # (auto) 0.4 10 ^3/uL (0-1.3); Monocytes % (auto) 4.7 % (0.0-12.0); Neutrophils # (auto) 6.5 10 ^3/uL (1.6-8.6); Neutrophils % (auto) 82.5 % (37.0-80.0); Nucleated Red Blood Cells % 0.1 %; Red Cell Distribution Width 17.2 % (11.8-14.3); White Blood Cell 7.8 10^3/uL (4.4-10.8)
[2023-10-05 05:33] LABS: Anion Gap 4 (5-15); Calcium 6.5 mg/dL (8.7-10.4); Carbon Dioxide 35 mmol/L (20-30); Chloride 100 mmol/L (98-107); Potassium 2.7 mmol/L (3.5-5.1); Sodium 139 mmol/L (136-145)
[2023-10-05 05:39] LABS: BUN/Creatinine Ratio 16.1 (10.0-20.0); Glucose 102 mg/dL (74-106)
[2023-10-05 05:40] LABS: Blood Urea Nitrogen 29 mg/dL (9-23)
[2023-10-06] VITALS (8 sets, daily range): BP systolic 104–187; BP diastolic 47–110; PULSE 72–89; RESP 16–22; TEMP 97.7–98.4; O2SAT 91–98
[2023-10-06 05:38] LABS: Basophils # (auto) 0 10 ^3/uL (0-0.2); Basophils % (auto) 0.1 % (0.0-2.0); Eosinophils # (auto) 0.2 10 ^3/uL (0-0.8); Hematocrit 29.5 % (41.0-53.0); Hemoglobin 9.8 g/dL (13.5-17.5); Lymphocytes # (auto) 0.9 10 ^3/uL (0.4-5.4); Lymphocytes % (auto) 11.9 % (10.0-50.0); Mean Corpuscular Hemoglobin 28.6 pg (28.0-32.0); Mean Corpuscular Hgb Conc. 33.3 g/dL (32.0-36.0); Mean Corpuscular Volume 85.9 fL (80.0-100.0); Monocytes # (auto) 0.3 10 ^3/uL (0-1.3); Monocytes % (auto) 4.4 % (0.0-12.0); Neutrophils # (auto) 6.4 10 ^3/uL (1.6-8.6); Neutrophils % (auto) 81.6 % (37.0-80.0); Nucleated Red Blood Cells % 0.1 %; Red Blood Cells 3.44 10^6/uL (4.5-5.90); Red Cell Distribution Width 16.5 % (11.8-14.3); White Blood Cell 7.8 10^3/uL (4.4-10.8)
[2023-10-06 05:49] LABS: Anion Gap 2 (5-15); Carbon Dioxide 35 mmol/L (20-30); Chloride 103 mmol/L (98-107); Sodium 140 mmol/L (136-145)
[2023-10-06 05:50] LABS: Calcium 6.3 mg/dL (8.7-10.4)
[2023-10-06 05:55] LABS: BUN/Creatinine Ratio 13.1 (10.0-20.0); Blood Urea Nitrogen 19 mg/dL (9-23); Glucose 92 mg/dL (74-106)
[2023-10-06] MEDS: POTASSIUM EFFERVESENT TAB 25 MEQ ONE (11:11)
[2023-10-06] MEDS: POTASSIUM EFFERVESENT TAB 25 MEQ PO ONE (11:18)
[2023-10-06] MEDS: LINEZOLID 600MG TABLET PO SCH (21:14)
[2023-10-07] VITALS (9 sets, daily range): BP systolic 134–154; BP diastolic 51–72; PULSE 65–100; RESP 16–22; TEMP 97.9–98.5; O2SAT 92–100
[2023-10-07] MEDS: IOTHALAMATE MEGLUMINE INJ 250ML BOT UR ONE (03:39)
[2023-10-07 05:49] LABS: Basophils # (auto) 0 10 ^3/uL (0-0.2); Basophils % (auto) 0.4 % (0.0-2.0); Eosinophils # (auto) 0.2 10 ^3/uL (0-0.8); Eosinophils % (auto) 1.9 % (0.0-7.0); Hematocrit 29.3 % (41.0-53.0); Hemoglobin 9.5 g/dL (13.5-17.5); Lymphocytes # (auto) 0.9 10 ^3/uL (0.4-5.4); Mean Corpuscular Hemoglobin 28.5 pg (28.0-32.0); Mean Corpuscular Hgb Conc. 32.4 g/dL (32.0-36.0); Monocytes # (auto) 0.4 10 ^3/uL (0-1.3); Monocytes % (auto) 4.5 % (0.0-12.0); Neutrophils # (auto) 6.8 10 ^3/uL (1.6-8.6); Neutrophils % (auto) 82.2 % (37.0-80.0); Nucleated Red Blood Cells % 0.1 %; Red Blood Cells 3.33 10^6/uL (4.5-5.90); Red Cell Distribution Width 16.7 % (11.8-14.3); White Blood Cell 8.3 10^3/uL (4.4-10.8)
[2023-10-07 05:53] LABS: Anion Gap 3 (5-15); Calcium 6.4 mg/dL (8.7-10.4); Carbon Dioxide 34 mmol/L (20-30); Chloride 105 mmol/L (98-107); Potassium 2.7 mmol/L (3.5-5.1); Sodium 142 mmol/L (136-145)
[2023-10-07 05:59] LABS: BUN/Creatinine Ratio 11.2 (10.0-20.0); Blood Urea Nitrogen 13 mg/dL (9-23); Glucose 100 mg/dL (74-106)
[2023-10-07] MEDS: POTASSIUM CHL 20MEQ/100ML 200 ML IV ONE (11:41)
[2023-10-07] MEDS: ERTAPENEM SOD INJ 1 GM in SODIUM CHL 0.9% 50 ML IV SCH (11:58)
[2023-10-07] MEDS: POTASSIUM CHL 20MEQ/100ML 100 ML IV SCH (11:58)
[2023-10-07] MEDS: POTASSIUM CHL 20 Meq TABLET PO ONE ×2 (12:08→18:35)
[2023-10-07] MEDS: POTASSIUM EFFERVESENT TAB 25 MEQ ONE (21:45)
[2023-10-07] MEDS: POTASSIUM EFFERVESENT TAB 25 MEQ PO SCH (21:49)
[2023-10-08] VITALS (9 sets, daily range): BP systolic 112–142; BP diastolic 64–74; PULSE 86–95; RESP 16–19; TEMP 36.9; O2SAT 95–98
[2023-10-08 06:38] LABS: Basophils # (auto) 0 10 ^3/uL (0-0.2); Basophils % (auto) 0.2 % (0.0-2.0); Eosinophils # (auto) 0.2 10 ^3/uL (0-0.8); Eosinophils % (auto) 1.7 % (0.0-7.0); Hemoglobin 9.1 g/dL (13.5-17.5); Lymphocytes # (auto) 1.4 10 ^3/uL (0.4-5.4); Lymphocytes % (auto) 15.6 % (10.0-50.0); Mean Corpuscular Hemoglobin 28.4 pg (28.0-32.0); Mean Corpuscular Hgb Conc. 32.5 g/dL (32.0-36.0); Mean Corpuscular Volume 87.4 fL (80.0-100.0); Monocytes # (auto) 0.5 10 ^3/uL (0-1.3); Monocytes % (auto) 5.1 % (0.0-12.0); Neutrophils # (auto) 6.8 10 ^3/uL (1.6-8.6); Neutrophils % (auto) 77.4 % (37.0-80.0); Nucleated Red Blood Cells % 0.1 %; Red Cell Distribution Width 16.9 % (11.8-14.3); White Blood Cell 8.9 10^3/uL (4.4-10.8)
[2023-10-08 06:53] LABS: Anion Gap 5 (5-15); Carbon Dioxide 27 mmol/L (20-30); Chloride 110 mmol/L (98-107); Potassium 4.4 mmol/L (3.5-5.1); Sodium 142 mmol/L (136-145)
[2023-10-08 06:55] LABS: Calcium 6.3 mg/dL (8.5-10.1)
[2023-10-08 06:59] LABS: BUN/Creatinine Ratio 10.9 (10.0-20.0); Blood Urea Nitrogen 11 mg/dL (9-23); Glucose 94 mg/dL (74-106)
[2023-10-08 11:59] LABS: Base Excess -2.7 mmol/L (-2.0-2.0)
== END 2023-10-08 18:30 | DRG 698 ==
LOC: EDBD 17:45 → ER 17:45 → TELE 23:25 → TELE-WESTW 10-01 10:04
PROVIDERS: ADMIT Hospitalist; ATTEND Hospitalist
PROC: 0T933ZZ Drainage of Right Kidney Pelvis, Percutaneous Approach (ICD-10-PCS; principal; 2023-10-03)
PROC: 0T943ZZ Drainage of Left Kidney Pelvis, Percutaneous Approach (ICD-10-PCS; 2023-10-03)
PROC: BT13ZZZ Fluoroscopy of Bilateral Kidneys (ICD-10-PCS; 2023-10-03)
DX: T83.038A Leakage of other urinary catheter, initial encounter (principal); J15.212 Pneumonia due to Methicillin resistant Staphylococcus aureus; E87.20 Acidosis, unspecified; N17.9 Acute kidney failure, unspecified; K56.609 Unspecified intestinal obstruction, unspecified as to partial versus complete obstruction; J44.0 Chronic obstructive pulmonary disease with (acute) lower respiratory infection; N13.6 Pyonephrosis; J96.11 Chronic respiratory failure with hypoxia; R78.81 Bacteremia; R18.8 Other ascites; E87.5 Hyperkalemia; I10 Essential (primary) hypertension; K21.9 Gastro-esophageal reflux disease without esophagitis; G30.9 Alzheimer's disease, unspecified; E78.5 Hyperlipidemia, unspecified; E87.70 Fluid overload, unspecified; E87.6 Hypokalemia; B96.20 Unspecified Escherichia coli [E. coli] as the cause of diseases classified elsewhere; I25.10 Atherosclerotic heart disease of native coronary artery without angina pectoris; D64.9 Anemia, unspecified; Y83.8 Other surgical procedures as the cause of abnormal reaction of the patient, or of later complication, without mention of misadventure at the time of the procedure; Z85.51 Personal history of malignant neoplasm of bladder; Z79.2 Long term (current) use of antibiotics; Z79.899 Other long term (current) drug therapy; Z79.01 Long term (current) use of anticoagulants; Z79.51 Long term (current) use of inhaled steroids; Z82.49 Family history of ischemic heart disease and other diseases of the circulatory system; Z82.0 Family history of epilepsy and other diseases of the nervous system; Z92.3 Personal history of irradiation; Y92.89 Other specified places as the place of occurrence of the external cause
CPT/HCPCS: 36415; 36600; 50432; 71045; 72193; 74176; 74425; 76942; 80048; 80053; 81001; 82805; 83605; 83690; 83880; 84132; 85007; 85025; 85027; 85610; 86850; 86900; 86901; 87040; 87070; 87077; 87081; 87086; 87088; 87186; 87205; 93005; 93306; 94640; 97110; 97116; 97163; 97530; 99152; 99291; C1729; C9113; G0378; J1335; J1815; J2001; J2250; J2405; J2543; J3480; J7060

== ENCOUNTER 2023-11-30 11:21 | Inpatient (IN) | payer OTHER, MEDICAID ==
[~2023-11-30] VITALS: Ht 170.2 cm; Wt 88.3 kg
[2023-11-30 12:20] VITALS: PULSE 116; RESP 16; O2SAT 94
[2023-11-30 13:06] LABS: Urine Bacteria MOD /hpf (None Seen); Urine Blood Negative /uL (Negative); Urine Clarity Ex.Turbid (Clear); Urine Color Light-Red (Yellow); Urine Hyaline Cast MOD /lpf (0 - 2); Urine Mucus FEW (None Seen); Urine Protein, UAD 2+ (Negative); Urine Specific Gravity 1.017 (1.001-1.035); Urine Urobilinogen Normal (Negative); Urine WBC 38 /hpf (0 - 3); Urine WBC Clumps PRESENT /hpf (None Seen); Urine pH 8.5 (5.0-9.0)
[2023-11-30 13:55] LABS: Hematocrit 31.2 % (41.0-53.0); Hemoglobin 9.9 g/dL (13.5-17.5); Mean Corpuscular Hemoglobin 27.2 pg (28.0-32.0); Mean Corpuscular Hgb Conc. 31.8 g/dL (32.0-36.0); Mean Corpuscular Volume 85.5 fL (80.0-100.0); Red Blood Cells 3.65 10^6/uL (4.5-5.90); Red Cell Distribution Width 17.7 % (11.8-14.3); White Blood Cell 26.2 10^3/uL (4.4-10.8)
[2023-11-30 13:57] LABS: Band Neutrophils % (manual) 0; Basophils % (manual) 0 (0.0-2.0); Blast Cells 0; Eosinophils % (manual) 0 (0-7); Metamyelocytes % 0; Promyelocytes % 0; Reactive Lymphocytes 0
[2023-11-30 13:59] LABS: Alanine Aminotransferase 9 U/L (7-40); Albumin 2.2 g/dL (3.2-4.8); Alkaline Phosphatase 109 U/L (46-116); Anion Gap 7 (5-15); Aspartate Aminotransferase 15 U/L (13-40); Bilirubin, Total 0.2 mg/dL (0.2-1.0); Blood Urea Nitrogen 48 mg/dL (9-23); Calcium 7.3 mg/dL (8.7-10.4); Carbon Dioxide 24 mmol/L (20-30); Chloride 107 mmol/L (98-107); Glucose 89 mg/dL (74-106); Potassium 5.5 mmol/L (3.5-5.1); Sodium 138 mmol/L (136-145); Total Protein 4.6 g/dL (5.7-8.2)
[2023-11-30 14:01] LABS: INR 1.29 (0.9-1.15); Partial Thromboplastin Time 27.6 SEC (24.5-34.5); Prothrombin Time 13.4 sec (9.3-11.8)
[2023-11-30 14:12] LABS: Lactic Acid w/Reflex 2.7 mmol/L (0.4-2.0)
[2023-11-30 14:24] LABS: Lymphocytes % (manual) 3 (10.0-50.0); Monocytes % (manual) 1 (0-12); Myelocytes % 1; Platelet Estimate Adequate
[2023-11-30] MEDS: AZITHROMYCIN 500MG/ 250ML 250 ML IV ONE (15:53)
[2023-11-30] MEDS: SODIUM CHLORIDE 0.9% 1,000 ML IV ONE (15:53)
[2023-11-30] MEDS ORDERED: HYDROcodone-ACET 5/325MG TAB PO PRN (17:45)
[2023-11-30] MEDS ORDERED: MORPHINE SULFATE INJ 2 MG/ml SYRG IV PRN ×2 (17:45)
[2023-11-30] MEDS ORDERED: ACETAMINOPHEN 325 MG TAB PO PRN (17:45)
[2023-11-30] MEDS ORDERED: NITROGLYCERIN 0.4 MG SL TAB SL PRN (17:45)
[2023-11-30] MEDS: SODIUM CHLORIDE 0.9% 1,000 ML IV SCH (18:15)
[2023-11-30 19:30] VITALS: PULSE 123; RESP 94; O2SAT 94
[2023-11-30] MEDS: cefTRIAXone 2GM/50ML D5W 50 ML IV ONE (20:19)
[2023-11-30] MEDS: PIPERACILLIN-TAZOB 3.375GM 100 ML IV ONE (21:17)
[2023-12-01] VITALS (8 sets, daily range): BP systolic 108–121; BP diastolic 48–75; PULSE 61–104; RESP 12–18; TEMP 97.6–98.6; O2SAT 90–95
[2023-12-01] MEDS: PIPERACILLIN-TAZOB 3.375GM 100 ML IV SCH (01:38)
[2023-12-01 06:04] LABS: Basophils # (auto) 0 10 ^3/uL (0-0.2); Basophils % (auto) 0.1 % (0.0-2.0); Eosinophils # (auto) 0.1 10 ^3/uL (0-0.8); Eosinophils % (auto) 0.8 % (0.0-7.0); Hematocrit 27.1 % (41.0-53.0); Hemoglobin 8.7 g/dL (13.5-17.5); Lymphocytes # (auto) 0.6 10 ^3/uL (0.4-5.4); Mean Corpuscular Hemoglobin 27.2 pg (28.0-32.0); Mean Corpuscular Volume 84.9 fL (80.0-100.0); Monocytes # (auto) 0.8 10 ^3/uL (0-1.3); Monocytes % (auto) 5.4 % (0.0-12.0); Neutrophils # (auto) 13.4 10 ^3/uL (1.6-8.6); Neutrophils % (auto) 89.7 % (37.0-80.0); Red Cell Distribution Width 17.8 % (11.8-14.3); White Blood Cell 14.9 10^3/uL (4.4-10.8)
[2023-12-01 06:27] LABS: Albumin 1.9 g/dL (3.2-4.8); Alkaline Phosphatase 99 U/L (46-116); Anion Gap 5 (5-15); Aspartate Aminotransferase 9 U/L (13-40); BUN/Creatinine Ratio 27.6 (10.0-20.0); Bilirubin, Total 0.2 mg/dL (0.2-1.0); Calcium 7.3 mg/dL (8.7-10.4); Carbon Dioxide 24 mmol/L (20-30); Chloride 108 mmol/L (98-107); Glucose 81 mg/dL (74-106); Potassium 4.6 mmol/L (3.5-5.1); Sodium 137 mmol/L (136-145); Total Protein 4.2 g/dL (5.7-8.2)
[2023-12-01 06:28] LABS: Alanine Aminotransferase < 9 U/L (7-40); Blood Urea Nitrogen 35 mg/dL (9-23)
[2023-12-01] MEDS ORDERED: VANCOMYCIN PER PHARMACY 0 MG IV SCH (13:30)
[2023-12-01] MEDS: VANCOMYCIN 1GM/200ML 200 ML IV ONE (16:36)
[2023-12-02] VITALS (8 sets, daily range): BP systolic 106–137; BP diastolic 45–70; PULSE 92–105; RESP 18–20; TEMP 97.8–98.6; O2SAT 92–97
[2023-12-02 12:39] LABS: Protein, Urine 83.7 mg/dL (0.0-11.9)
[2023-12-02 12:40] LABS: Protein, Urine 82.7 mg/dL (0.0-11.9)
[2023-12-02 12:41] LABS: Creatinine, Urine 49.86 mg/dL (30.0-125.0); Urine Protein/Creatinine Ratio 1.68
[2023-12-02 12:42] LABS: Creatinine, Urine 49.43 mg/dL (30.0-125.0); Urine Protein/Creatinine Ratio 1.67
[2023-12-02 12:43] LABS: Erythrocyte Sedimentation Rate 13 mm/hr (0-20)
[2023-12-02] MEDS: MEROPENEM 1GM IVPB 50 ML IV SCH (14:28)
[2023-12-02] MEDS: VANCOMYCIN 1GM/200ML 200 ML IV SCH (16:26)
[2023-12-03] VITALS (8 sets, daily range): BP systolic 102–126; BP diastolic 58–79; PULSE 63–123; RESP 18–79; TEMP 97.8–98.3; O2SAT 92–98
[2023-12-03 05:45] LABS: Basophils # (auto) 0 10 ^3/uL (0-0.2); Basophils % (auto) 0.1 % (0.0-2.0); Eosinophils # (auto) 0.1 10 ^3/uL (0-0.8); Eosinophils % (auto) 0.8 % (0.0-7.0); Lymphocytes # (auto) 0.9 10 ^3/uL (0.4-5.4)
[2023-12-03 05:47] LABS: Hematocrit 28.5 % (41.0-53.0); Lymphocytes % (auto) 5.3 % (10.0-50.0); Mean Corpuscular Hemoglobin 26.9 pg (28.0-32.0); Mean Corpuscular Hgb Conc. 31.5 g/dL (32.0-36.0); Mean Corpuscular Volume 85.4 fL (80.0-100.0); Monocytes # (auto) 0.7 10 ^3/uL (0-1.3); Monocytes % (auto) 4.2 % (0.0-12.0); Neutrophils # (auto) 15.4 10 ^3/uL (1.6-8.6); Neutrophils % (auto) 89.6 % (37.0-80.0); Nucleated Red Blood Cells % 0.1 %; Red Blood Cells 3.34 10^6/uL (4.5-5.90); Red Cell Distribution Width 17.9 % (11.8-14.3); White Blood Cell 17.1 10^3/uL (4.4-10.8)
[2023-12-03 06:01] LABS: Chloride 109 mmol/L (98-107); Potassium 3.6 mmol/L (3.5-5.1); Sodium 137 mmol/L (136-145)
[2023-12-03 06:02] LABS: Anion Gap 5 (5-15); Carbon Dioxide 23 mmol/L (20-30)
[2023-12-03 06:03] LABS: Calcium 7.7 mg/dL (8.7-10.4)
[2023-12-03 06:08] LABS: BUN/Creatinine Ratio 18.9 (10.0-20.0); Blood Urea Nitrogen 18 mg/dL (9-23); Glucose 92 mg/dL (74-106)
[2023-12-03] MEDS: ENOXAPARIN SOD 40 MG/0.4 ML SYRINGE SC SCH (09:16)
[2023-12-04] VITALS (16 sets, daily range): BP systolic 116–139; BP diastolic 57–78; PULSE 69–133; RESP 17–67; TEMP 97–98.5; O2SAT 93–98
[2023-12-04 06:31] LABS: Basophils # (auto) 0 10 ^3/uL (0-0.2); Basophils % (auto) 0.2 % (0.0-2.0); Eosinophils # (auto) 0.1 10 ^3/uL (0-0.8); Eosinophils % (auto) 0.9 % (0.0-7.0); Hematocrit 26.6 % (41.0-53.0); Hemoglobin 8.5 g/dL (13.5-17.5); Lymphocytes # (auto) 0.9 10 ^3/uL (0.4-5.4); Lymphocytes % (auto) 6.3 % (10.0-50.0); Mean Corpuscular Hemoglobin 27.2 pg (28.0-32.0); Mean Corpuscular Hgb Conc. 31.8 g/dL (32.0-36.0); Mean Corpuscular Volume 85.3 fL (80.0-100.0); Monocytes # (auto) 0.7 10 ^3/uL (0-1.3); Monocytes % (auto) 4.8 % (0.0-12.0); Neutrophils # (auto) 12.9 10 ^3/uL (1.6-8.6); Neutrophils % (auto) 87.8 % (37.0-80.0); Red Blood Cells 3.11 10^6/uL (4.5-5.90); Red Cell Distribution Width 17.8 % (11.8-14.3); White Blood Cell 14.7 10^3/uL (4.4-10.8)
[2023-12-04 06:53] LABS: Albumin 1.9 g/dL (3.2-4.8); Alkaline Phosphatase 85 U/L (46-116)
[2023-12-04 06:54] LABS: Anion Gap 8 (5-15); Aspartate Aminotransferase 8 U/L (13-40); BUN/Creatinine Ratio 17.9 (10.0-20.0); Bilirubin, Total 0.2 mg/dL (0.2-1.0); Blood Urea Nitrogen 15 mg/dL (9-23); Calcium 8.1 mg/dL (8.7-10.4); Carbon Dioxide 20 mmol/L (20-30); Chloride 109 mmol/L (98-107); Glucose 75 mg/dL (74-106); Potassium 3.6 mmol/L (3.5-5.1); Sodium 137 mmol/L (136-145); Total Protein 4.3 g/dL (5.7-8.2)
[2023-12-04 07:01] LABS: Alanine Aminotransferase < 9 U/L (7-40)
[2023-12-04] MEDS: diphenhdrAMINE HCL 50 MG/1 ML VL IV ONE (11:15)
[2023-12-04] MEDS: MIDAZOLAM HCL 2MG/2ML 2ml VIAL (1mg/ml) IV ONE (11:15)
[2023-12-04] MEDS: LIDOCAINE VISCOUS 2% 15ML UD PO ONE (12:30)
[2023-12-04] MEDS: fentaNYL CITRATE 100 MCG/2 ML VL IV ONE (12:33)
[2023-12-04 13:07] LABS: Anti-Centromere B Antibody <0.2 AI (0.0-0.9); Anti-Jo-1 Antibody <0.2 AI (0.0-0.9); Anti-dsDNA Antibody >300 IU/mL (0-9); Antichromatin Antibody 0.8 AI (0.0-0.9); Antiscleroderma-70 Antibody <0.2 AI (0.0-0.9); RNP Antibody <0.2 AI (0.0-0.9); Sjogren's Anti-SS-A Antibody <0.2 AI (0.0-0.9); Sjogren's Anti-SS-B Antibody <0.2 AI (0.0-0.9); Smith Antibody <0.2 AI (0.0-0.9)
[2023-12-04 15:07] LABS: Complement C3 120 mg/dL (82-167)
[2023-12-04 16:30] LABS: INR 1.18 (0.9-1.15); Partial Thromboplastin Time 27.6 SEC (24.5-34.5); Prothrombin Time 12.4 sec (9.3-11.8)
[2023-12-05] VITALS (15 sets, daily range): BP systolic 102–140; BP diastolic 46–78; PULSE 68–109; RESP 16–20; TEMP 97–98.3; O2SAT 90–100
[2023-12-05 06:43] LABS: Basophils # (auto) 0.1 10 ^3/uL (0-0.2); Eosinophils # (auto) 0.2 10 ^3/uL (0-0.8); Lymphocytes # (auto) 0.7 10 ^3/uL (0.4-5.4); Monocytes # (auto) 0.6 10 ^3/uL (0-1.3)
[2023-12-05 06:44] LABS: Basophils % (auto) 0.8 % (0.0-2.0); Eosinophils % (auto) 1.7 % (0.0-7.0); Hematocrit 29.6 % (41.0-53.0); Hemoglobin 9.2 g/dL (13.5-17.5); Lymphocytes % (auto) 5.4 % (10.0-50.0); Mean Corpuscular Hemoglobin 27.1 pg (28.0-32.0); Mean Corpuscular Hgb Conc. 31.1 g/dL (32.0-36.0); Mean Corpuscular Volume 87.2 fL (80.0-100.0); Monocytes % (auto) 4.8 % (0.0-12.0); Neutrophils # (auto) 11.8 10 ^3/uL (1.6-8.6); Neutrophils % (auto) 87.3 % (37.0-80.0); Nucleated Red Blood Cells % 0.1 %; Red Blood Cells 3.39 10^6/uL (4.5-5.90); Red Cell Distribution Width 18.4 % (11.8-14.3); White Blood Cell 13.6 10^3/uL (4.4-10.8)
[2023-12-05] MEDS: ALBUTEROL SULF 2.5 MG/0.5ML(0.5%) NEB SOLN NEB SCH (12:22)
[2023-12-05] MEDS: TAMSULOSIN HYDROCHLORIDE 0.4 MG CAP PO SCH (18:37)
[2023-12-06] VITALS (16 sets, daily range): BP systolic 83–157; BP diastolic 36–76; PULSE 72–109; RESP 16–24; TEMP 97.5–98.2; O2SAT 93–100
[2023-12-06 05:39] LABS: Basophils # (auto) 0 10 ^3/uL (0-0.2); Eosinophils # (auto) 0.3 10 ^3/uL (0-0.8); Hemoglobin 8.2 g/dL (13.5-17.5); Lymphocytes # (auto) 0.9 10 ^3/uL (0.4-5.4)
[2023-12-06 05:45] LABS: Basophils % (auto) 0.4 % (0.0-2.0); Eosinophils % (auto) 3.5 % (0.0-7.0); Hematocrit 25.6 % (41.0-53.0); Lymphocytes % (auto) 9.3 % (10.0-50.0); Mean Corpuscular Hemoglobin 27.8 pg (28.0-32.0); Mean Corpuscular Hgb Conc. 31.9 g/dL (32.0-36.0); Mean Corpuscular Volume 87.1 fL (80.0-100.0); Monocytes # (auto) 0.4 10 ^3/uL (0-1.3); Monocytes % (auto) 3.9 % (0.0-12.0); Neutrophils # (auto) 8.1 10 ^3/uL (1.6-8.6); Neutrophils % (auto) 82.9 % (37.0-80.0); Nucleated Red Blood Cells % 0.1 %; Red Blood Cells 2.94 10^6/uL (4.5-5.90); Red Cell Distribution Width 17.9 % (11.8-14.3); White Blood Cell 9.8 10^3/uL (4.4-10.8)
[2023-12-06 05:47] LABS: Chloride 112 mmol/L (98-107); Potassium 3.8 mmol/L (3.5-5.1); Sodium 139 mmol/L (136-145)
[2023-12-06 05:48] LABS: Anion Gap 6 (5-15); Carbon Dioxide 21 mmol/L (20-30)
[2023-12-06 05:49] LABS: Calcium 7.7 mg/dL (8.5-10.1)
[2023-12-06 05:54] LABS: Glucose 86 mg/dL (74-106)
[2023-12-06 05:55] LABS: BUN/Creatinine Ratio 10.7 (10.0-20.0); Blood Urea Nitrogen 9 mg/dL (9-23)
[2023-12-06] MEDS: ERTAPENEM SOD INJ 1 GM in SODIUM CHL 0.9% 50 ML IV ONE (18:14)
[2023-12-07] VITALS (14 sets, daily range): BP systolic 147–152; BP diastolic 47–82; PULSE 38–147; RESP 16–18; TEMP 97.4–98.1; O2SAT 92–100
[2023-12-07] MEDS: IOTHALAMATE MEGLUMINE INJ 250ML BOT UR ONE (12:59)
== END 2023-12-07 22:45 | disposition home health service (06) | DRG 871 ==
LOC: ER 11:41 → TELE-CENTR 17:36 → OVERFLOW 17:36 → CENTRAL 23:41 → TELE-CENTR 12-03 01:05
PROVIDERS: ADMIT Student in an Organized Health Care Education/Training Program; ATTEND Student in an Organized Health Care Education/Training Program
PROC: [UNRECOGNIZED PROCEDURE] (2023-12-04)
PROC: 06HY33Z Insertion of Infusion Device into Lower Vein, Percutaneous Approach (ICD-10-PCS; principal; 2023-12-06)
PROC: B54BZZA Ultrasonography of Right Lower Extremity Veins, Guidance (ICD-10-PCS; 2023-12-06)
DX: A41.51 Sepsis due to Escherichia coli [E. coli] (principal); J15.212 Pneumonia due to Methicillin resistant Staphylococcus aureus; J44.0 Chronic obstructive pulmonary disease with (acute) lower respiratory infection; N17.9 Acute kidney failure, unspecified; I48.20 Chronic atrial fibrillation, unspecified; J44.1 Chronic obstructive pulmonary disease with (acute) exacerbation; K56.609 Unspecified intestinal obstruction, unspecified as to partial versus complete obstruction; I24.89 Other forms of acute ischemic heart disease; J90 Pleural effusion, not elsewhere classified; N13.6 Pyonephrosis; T83.022A Displacement of nephrostomy catheter, initial encounter; R65.20 Severe sepsis without septic shock; E78.5 Hyperlipidemia, unspecified; N18.2 Chronic kidney disease, stage 2 (mild); K21.9 Gastro-esophageal reflux disease without esophagitis; M19.09 Primary osteoarthritis, other specified site; E87.5 Hyperkalemia; G30.9 Alzheimer's disease, unspecified; F02.80 Dementia in other diseases classified elsewhere, unspecified severity, without behavioral disturbance, psychotic disturbance, mood disturbance, and anxiety; E88.09 Other disorders of plasma-protein metabolism, not elsewhere classified; D64.9 Anemia, unspecified; I12.9 Hypertensive chronic kidney disease with stage 1 through stage 4 chronic kidney disease, or unspecified chronic kidney disease; E86.0 Dehydration; I34.0 Nonrheumatic mitral (valve) insufficiency; Z85.51 Personal history of malignant neoplasm of bladder; Z87.891 Personal history of nicotine dependence; Z92.3 Personal history of irradiation; Z86.14 Personal history of Methicillin resistant Staphylococcus aureus infection; Z82.49 Family history of ischemic heart disease and other diseases of the circulatory system; Z82.0 Family history of epilepsy and other diseases of the nervous system; Z79.899 Other long term (current) drug therapy; Z79.51 Long term (current) use of inhaled steroids; Z79.01 Long term (current) use of anticoagulants; Y84.8 Other medical procedures as the cause of abnormal reaction of the patient, or of later complication, without mention of misadventure at the time of the procedure; Y92.89 Other specified places as the place of occurrence of the external cause
CPT/HCPCS: 36415; 70450; 70486; 71045; 71250; 72125; 74176; 74430; 80048; 80053; 80202; 81001; 82565; 82570; 83516; 83605; 83880; 84156; 84484; 85007; 85025; 85027; 85379; 85610; 85652; 85730; 86160; 86225; 86235; 87040; 87077; 87081; 87086; 87088; 87186; 93005; 93312; 93970; 94640; 96365; 96366; 96367; 97110; 97116; 97163; 97530; 99152; G0378; J1335; J2185; J2250; J2543